=== PATIENT | female | born 1965 | race African-American/Black ===

== ENCOUNTER 2021-09-22 08:11 | Day surgery (SDC) | payer BC ==
[~2021-09-22 08:11] MED LIST: Lactated Ringers 1,000 ML IV SCH; Propofol 200 MG/20 ML SDV ONE; fentaNYL 100 MCG/2 ML SDV ONE
[2021-09-22] MEDS ORDERED: ePHEDrine 50 MG/ML SDV ONE (09:30)
== END 2021-09-22 10:30 | disposition home or self-care (01) ==
LOC: MW.SDS 08:11
PROVIDERS: ATTEND Surgery
DX: Z12.11 Encounter for screening for malignant neoplasm of colon (principal); D12.6 Benign neoplasm of colon, unspecified; I10 Essential (primary) hypertension; E66.9 Obesity, unspecified; Z68.32 Body mass index [BMI] 32.0-32.9, adult; Z79.899 Other long term (current) drug therapy
CPT/HCPCS: 45385; J2370; J2704; J3010; J7120